=== PATIENT | female | born 1965 | race Caucasian/White ===

== ENCOUNTER 2017-06-17 22:41 | Emergency (ER) | payer OTHER ==
[~2017-06-17] VITALS: Ht 162.6 cm; Wt 62.7 kg
[~2017-06-17 22:41] MED LIST: ADVAIR 250/501 DISK IH; ASPIR 8181 M1 PO; ASPIR-LOW81 MG PO; AZITHROMYCIN500 M1 PO; Advair HFA 115/21 IH; Aspirin Chewable PO; CEFUROXIME500 MG PO; CHERATUSSIN AC473 ML PO; COLACE50 MG PO; DECADRON2 MG PO; DIFLUCAN200 MG PO; DOXYCYCLINE HY100 M3 PO; EMERGEN-C; FLONASE16 G1 BOTH NARES; FLUTICASONE PRO16 GM BOTH NARES; FLUVASTATIN SOD20 MG PO; LASIX10 MG PO; LEVOTHROID137 MCG PO; LO-DOSE ASPIRIN81 M1 PO; Levaquin PO; MONISTAT 744 GM VG; MOTRIN800 MG PO; MYCOSTATIN 100,60 ML PO; PERCOCET 5/31 TABLET PO; PRAVACHOL20 MG PO; PREDNISONE10 MG PO; PREDNISONE20 MG PO; PREDNISONE50 MG PO; PROVENTIL,2.5 MG/0.5 IH; PROVENTIL,2.5 MG/3 M IH; PROVENTIL2.5 MG/3 M IH; Proair HFA IH; SEPTRA 80-4001 EACH PO; SPIRIVA1 INHALATI IH; SYNTHROID125 MCG PO; TESSALON PERLE100 MG PO; VENTOLIN HFA18 GM IH; ZANTAC150 MG PO; ZYRTEC10 M3 PO; predniSONE PO
[2017-06-18 01:58] VITALS: BP 150/88
== END 2017-06-18 02:02 | disposition home or self-care (01) ==
LOC: EME 22:41 → RME 22:41
DX: J45.909 Unspecified asthma, uncomplicated (principal); Z86.73 Personal history of transient ischemic attack (TIA), and cerebral infarction without residual deficits; Z85.41 Personal history of malignant neoplasm of cervix uteri; Z85.850 Personal history of malignant neoplasm of thyroid; Z87.891 Personal history of nicotine dependence; Z88.0 Allergy status to penicillin
CPT/HCPCS: 94640; 99281; 99284; J1100

== ENCOUNTER 2017-11-25 20:44 | Observation (INO) | payer BC ==
[~2017-11-25] VITALS: Ht 162.6 cm; Wt 62.3 kg
[2017-11-25 21:03] LABS: HEMATOCRIT 46.7 % (36.0-46.0); HEMOGLOBIN 16.3 G/DL (11.9-15.5); MCH 32.4 PG (29.0-34.0); MCHC 34.9 G/DL (30.0-36.0); MCV 92.8 FL (83-99); PLATELET COUNT 256 K/uL (156-360); RBC DIS.WIDTH-CV 13.3 % (11.8-14.6); RBC DIS.WIDTH-SD 45.3 % (39-53); RED BLOOD COUNT 5.03 M/uL (3.80-5.20); WHITE BLOOD COUNT 12.4 K/uL (4.1-10.2)
[2017-11-25 21:14] LABS: CHLORIDE 106 mEq/L (99-109); POTASSIUM 3.4 mEq/L (3.7-5.4); SODIUM 138 mEq/L (136-147)
[2017-11-25 21:15] LABS: GLUCOSE 125 mg/dL (70-99)
[2017-11-25 21:19] LABS: CREATININE 0.9 mg/dL (0.6-1.3); GFR ESTIMATE (CALCULATED) > 59 mL/min/
[2017-11-25 21:20] LABS: UREA NITROGEN (BUN) 29 mg/dL (9-23)
[2017-11-25 21:27] LABS: TROP-I INTERPRETATION NEGATIVE; TROPONIN-I < 0.01 ng/mL (0.0-0.30)
[2017-11-26 04:32] LABS: TROP-I INTERPRETATION NEGATIVE; TROPONIN-I < 0.01 ng/mL (0.0-0.30)
[2017-11-26 04:45] LABS: HDL CHOLESTEROL 69 MG/DL (Desirable>=50); LDL CHOLESTEROL 103 mg/dL (Desirable<100); NON-HDL CHOLESTEROL 122 mg/dL (Desirable<160); TOTAL CHOLESTEROL 191 mg/dL (Desirable<200); TRIGLYCERIDES 95 MG/DL (Normal: <150)
[2017-11-26] MEDS ORDERED: POTASSIUM-9999 MG PO (07:54)
[2017-11-26] MEDS ORDERED: BENADRYL25 MG PO (07:55)
[2017-11-26] MEDS ORDERED: VITAMIN C500 M1 PO (07:55)
[2017-11-26] MEDS ORDERED: B-COMPLEX-VITA1 EACH PO (07:56)
[2017-11-26] MEDS ORDERED: LASIX20 MG PO (07:56)
[2017-11-26] MEDS ORDERED: VITAMIN D31000 UNI2 PO (07:59)
[2017-11-26] MEDS ORDERED: CALCIUM 500 MG1 EACH PO (07:59)
[2017-11-26 08:00] LABS: HEMATOCRIT 47.1 % (36.0-46.0); HEMOGLOBIN 16.3 G/DL (11.9-15.5); MCH 32.9 PG (29.0-34.0); MCHC 34.6 G/DL (30.0-36.0); PLATELET COUNT 263 K/uL (156-360); RBC DIS.WIDTH-CV 13.3 % (11.8-14.6); RBC DIS.WIDTH-SD 46.5 % (39-53); RED BLOOD COUNT 4.96 M/uL (3.80-5.20); WHITE BLOOD COUNT 12.7 K/uL (4.1-10.2)
[2017-11-26 10:12] LABS: APPEARANCE CLEAR ((CLEAR)); BILIRUBIN NEGATIVE; BLOOD NEGATIVE; COLOR YELLOW ((YELLOW)); GLUCOSE (STRIP) NEGATIVE; KETONES NEGATIVE; LEUKOCYTES TRACE; NITRITE NEGATIVE; PROTEIN (STRIP) NEGATIVE; SPECIFIC GRAVITY 1.016 (1.000-1.030); UROBILINOGEN 0.2 MG/DL (0.2-1.0)
[2017-11-26 10:18] LABS: BACTERIA RARE /HPF; EPITHELIAL CELLS 1+ /HPF; MUCUS TRACE /LPF; RED BLOOD CELLS 0-5 /HPF (0-5); WHITE BLOOD CELLS 0-5 /HPF (0-5)
[2017-11-26 10:26] LABS: CHLORIDE 102 mEq/L (99-109); POTASSIUM 3.5 mEq/L (3.7-5.4); SODIUM 139 mEq/L (136-147)
[2017-11-26 10:28] LABS: GLUCOSE 70 mg/dL (70-99)
[2017-11-26 10:29] LABS: TROP-I INTERPRETATION NEGATIVE; TROPONIN-I < 0.01 ng/mL (0.0-0.30)
[2017-11-26 10:31] LABS: CREATININE 0.9 mg/dL (0.6-1.3); GFR ESTIMATE (CALCULATED) > 59 mL/min/
[2017-11-26 10:32] LABS: UREA NITROGEN (BUN) 23 mg/dL (9-23)
[2017-11-26 13:54] VITALS: BP 109/62
[2017-11-26] MEDS ORDERED: ATORVASTATIN CA40 MG PO (18:51)
== END 2017-11-26 13:59 | disposition home or self-care (01) ==
LOC: EXP 20:44 → EME 20:44 → EDOF 11-26 02:35 → ENRESERV 11-26 02:40 → CANRESERV 11-26 02:40 → EDOF 11-26 13:59 → CANRESERV 11-26 15:44 → ENRESERV 11-26 15:44
PROVIDERS: Hospitalist; Physician Assistant Medical
DX: R07.9 Chest pain, unspecified (principal); R11.0 Nausea; R06.02 Shortness of breath; R42 Dizziness and giddiness; E87.6 Hypokalemia; F17.210 Nicotine dependence, cigarettes, uncomplicated; K21.9 Gastro-esophageal reflux disease without esophagitis; Z86.73 Personal history of transient ischemic attack (TIA), and cerebral infarction without residual deficits; Z82.49 Family history of ischemic heart disease and other diseases of the circulatory system; Z85.850 Personal history of malignant neoplasm of thyroid; E89.0 Postprocedural hypothyroidism; J44.9 Chronic obstructive pulmonary disease, unspecified; I25.10 Atherosclerotic heart disease of native coronary artery without angina pectoris; I25.2 Old myocardial infarction; I11.0 Hypertensive heart disease with heart failure; I50.9 Heart failure, unspecified; J45.20 Mild intermittent asthma, uncomplicated; E78.5 Hyperlipidemia, unspecified; Z85.42 Personal history of malignant neoplasm of other parts of uterus; Z85.41 Personal history of malignant neoplasm of cervix uteri; Z90.49 Acquired absence of other specified parts of digestive tract; Z90.710 Acquired absence of both cervix and uterus; Z83.49 Family history of other endocrine, nutritional and metabolic diseases; Z88.0 Allergy status to penicillin; Z88.1 Allergy status to other antibiotic agents; Z88.2 Allergy status to sulfonamides; Z88.8 Allergy status to other drugs, medicaments and biological substances; Z91.013 Allergy to seafood; Z91.018 Allergy to other foods
CPT/HCPCS: 71046; 80048; 80061; 81003; 84484; 85027; 93005; G0378; J1650; J2270; J2405; J3480

== ENCOUNTER → 2018-03-11 | Outpatient (CLI) | payer BC ==
[~2018-03-11] MED LIST changes: +ATORVASTATIN CA40 MG PO; +B-COMPLEX-VITA1 EACH PO; +BENADRYL25 MG PO; +CALCIUM 500 MG1 EACH PO; +LASIX20 MG PO; +POTASSIUM-9999 MG PO; +VITAMIN C500 M1 PO; +VITAMIN D31000 UNI2 PO
== END | disposition home or self-care (01) ==
LOC: RAD 08:13
DX: E89.0 Postprocedural hypothyroidism (principal); R59.0 Localized enlarged lymph nodes; M54.2 Cervicalgia; R53.82 Chronic fatigue, unspecified; J44.9 Chronic obstructive pulmonary disease, unspecified
CPT/HCPCS: 70491